=== PATIENT | male | born 1995 | race African-American/Black ===

== ENCOUNTER 2019-11-10 13:31 | Emergency (ER) | payer OTHER ==
[~2019-11-10] VITALS: Ht 172.7 cm; Wt 69.6 kg
[2019-11-10] MEDS ORDERED: KETO10TAB PO (15:20)
[2019-11-10] MEDS ORDERED: CYCL5TAB PO (15:20)
[2019-11-10 15:24] VITALS: BP 120/72
== END 2019-11-10 15:35 | disposition home or self-care (01) ==
LOC: M ED 13:31
DX: S39.012A Strain of muscle, fascia and tendon of lower back, initial encounter (principal); X50.0XXA Overexertion from strenuous movement or load, initial encounter; Y99.1 Military activity; Z87.442 Personal history of urinary calculi

== ENCOUNTER 2019-11-23 11:56 | Inpatient (IN) | payer OTHER ==
[~2019-11-23] VITALS: Ht 172.7 cm; Wt 63.6 kg
[~2019-11-23 11:56] MED LIST: CYCL5TAB PO; KETO10TAB PO
[2019-11-23 18:27] LABS: HEMATOCRIT 48.8 % (42.0-52.0); MEAN CORPUSCULAR HEMOGLOBIN 25.8 pg (27.0-33.0); MEAN CORPUSCULAR HGB CONC 30.7 g/dl (32.0-36.5); PLATELET COUNT, AUTOMATED 252 10^3/uL (150-450); RED BLOOD COUNT 5.81 10^6/uL (4.30-6.10); WHITE BLOOD COUNT 7.6 10^3/uL (4.0-10.0)
[2019-11-23 18:57] LABS: AMPHETAMINES LEVEL URINE NEGATIVE (NEGATIVE); BARBITURATES URINE NEGATIVE (NEGATIVE); BENZODIAZEPINES URINE NEGATIVE (NEGATIVE); CANNABINOIDS URINE NEGATIVE (NEGATIVE); COCAINE METABOLITE URINE NEGATIVE (NEGATIVE); METHADONE URINE NEGATIVE (NEGATIVE); OPIATES URINE NEGATIVE (NEGATIVE); PHENCYCLIDINE URINE NEGATIVE (NEGATIVE)
[2019-11-23 19:06] LABS: ACETAMINOPHEN LEVEL < 2.0 UG/ML (10.0-30.0); ALBUMIN 4.4 GM/DL (3.2-5.2); ALT/SGPT 16 U/L (12-78); BILIRUBIN,DIRECT 0.2 MG/DL (0.0-0.2); BILIRUBIN,TOTAL 0.9 MG/DL (0.2-1.0); BLOOD UREA NITROGEN 10 MG/DL (7-18); CALCIUM LEVEL 9.7 MG/DL (8.5-10.1); CARBON DIOXIDE LEVEL 29 MEQ/L (21-32); CHLORIDE LEVEL 104 MEQ/L (98-107); CREATININE FOR GFR 0.98 MG/DL (0.70-1.30); ETHYL ALCOHOL (ETHANOL) 0.006 % (0.000-0.010); GLOMERULAR FILTRATION RATE > 60.0 (>60); GLUCOSE, FASTING 84 MG/DL (70-100); POTASSIUM SERUM 3.7 MEQ/L (3.5-5.1); SALICYLATE LEVEL < 1.7 MG/DL (5.0-30.0); SODIUM LEVEL 140 MEQ/L (136-145); THYROID STIMULATING HORMONE 0.715 uIU/ML (0.358-3.740); TOTAL PROTEIN 8.2 GM/DL (6.4-8.2)
[2019-11-23] MEDS ORDERED: ACETAMINOPHEN TAB 650MG DOSE (2X325MG) PO ONE (19:15)
[2019-11-23] MEDS ORDERED: MAALOX 30 ML SUSP *UDC PO PRN (20:15)
[2019-11-23] MEDS ORDERED: ACETAMINOPHEN TAB 650MG DOSE (2X325MG) PO PRN (20:15)
[2019-11-23] MEDS ORDERED: MOM 30ML SUSPENSION UDC PO PRN (20:15)
[2019-11-23] MEDS ORDERED: traZODone 50 MG TAB PO PRN (20:15)
[2019-11-24 06:00] VITALS: BP_SYST 115; BP_SYST 139; BP_DIAS 55; BP_DIAS 65
--- NOTE | 2019-11-24 07:26 | MHHPEPDOC ---
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 He reports that he has lost interest and had sleeping problems, becoming increasingly insomniac. He reports that he does feel better when he is around his family and they notices no symptoms, especially when his stress ulcer reduced. He noticed this contrasts greatly when he came home from spending time with his family during the winter break and began to feel suicidal at times. Subsequently, he had thoughts of ramming his car into a wall, however, he was persuaded to come into the ER and seek care. When the patient was met with, he described that he had not had any significant psychiatric history in many years and had been doing well other than his transf er to this base station and reports that he has found the to be more institutional and harder for him to cope with, making it difficult for him to feel accepted. Review Of Systems Depression: As above. Anxiety: The patient denies any excessive worry associated with physical symptoms. They deny any experience of discreet panic in the past. Onelia: The patient denies any episodes of euphoria/dysphoria associated with decreased need for sleep, hedonism, talkatively or impulsivity lasting longer than 5 days. Psychotic: The patient denies any experiences of auditory or visual hallucinat ions. They deny any episodes of paranoia or delusional thinking in the past Trauma: The patient denies any traumatic events associated with nightmares or intrusive thoughts. Borderline: The patient screens negative for borderline personality at this junction. Past Psychiatric History The patient has a history of a previous admission for a suicide attempt when he was younger, but no other interactions, no current psychiatric medications, or has no followup. Allergies Please see below. Family Psychiatric History The patient denies/is unaware any history of mental health history including add ictions and suicide. Social History The patient is a never soldier who currently has no children. He lives in the [facility], resides only with himself since on income, got a bachelor's degree in [employer] administration, grew up in the [place], but moved to go to college in [facility] when his family had moved. No illegal trouble and identifies as heterosexual. Reports that he talks to his parents regularly as his mom lives in the [place]. Reports his father lives in the [facility]. Substance Abuse History The patient denies any excessive alcohol use, tobacco or illicit drug use, denies history of substance use treatment. Medical History Patient has no significant past medical history. Mental Status Examination General: Well dressed with good hygiene Speech: Spontaneous and fluid Thought processes: Linear and logical MSK: Smooth and coordinated gait, no signs of tremors or involuntary orofacial movements Thought content: Future orientated Abstract reasoning, and computation: Intact Description of associations: Intact Description of abnormal or psychotic thoughts: Denies any suicidal or homicidal ideation. Denies any auditory or visual hallucinations. Does not appear to be responding to internal stimuli. Does not appear to be endorsing any bizarre or paranoid ideation. Judgment: fair Insight: fair Orientation: Alert and orientated 3 Cognition: Grossly normal Recent and remote memory: Intact Attention span and concentration: Intact Fund of knowledge: Adequate Mood: "okay" Affect: Mildly dysthymic with a constricted range Diagnoses Adjustment disorder with disruption of mood and conduct. Assessment and Plan Adjustment disorder: Start Wellbutrin 150 mg extended release daily. Discussed the risks, benefits and potential side effects with patient. Will convert to a voluntary 1.93 as the patient has no suicidal ideation at this time. Disposition The patient will be continued on a further voluntary admission for treatment of his depression which appears to have made good improvement with the environment. Problem List 1. Risk for suicide. 2. Ineffective coping. 3. Depression. Initial Treatment Plan 1. Patient was admitted on a 9.39 legal status. 2. Complete history was obtained. 3. With patients permission, family will be contacted and database will be expanded. 4. Patients medication regimen will be reviewed and changed accordingly. 5. Patient will be provided with protected environment. 6. Patient will be treated with individual, group, and milieu therapies. 7. Patient will receive supportive psych-education. 8. Discharge planning will commence immediately. 9. Outpatient follow-up treatment will be strongly recommended. 10. The initial treatment plan will focus initially on: Estimated Length Of Stay 3 days. Time Spent 70 minutes. Friday Vital Signs Vital Signs Date Time Temp Pulse Resp B/P (MAP) Pulse Ox O2 Delivery O2 Flow Rate FiO2 11/24/19 06:00 98.6 80 16 139/65 (89) 11/23/19 11:56 100 Laboratory Data 24H Labs Laboratory Tests 2 11/23/19 18:11: Nucleated Red Blood Cells % (auto) 0.0, Anion Gap 7L, Glomerular Filtration Rate > 60.0, Calcium Level 9.7, Total Bilirubin 0.9, Direct Bilirubin 0.2, Aspartate Amino Transf (AST/SGOT) 10, Alanine Aminotransferase (ALT/SGPT) 16, Alkaline Phosphatase 61, Total Protein 8.2, Albumin 4.4, Albumin/Globulin Ratio 1.16, Thyroid Stimulating Hormone (TSH) 0.715, Salicylates Level < 1.7L, Urine Opiates Screen NEGATIVE, Urine Methadone Screen NEGATIVE, Acetaminophen Level < 2.0L, Urine Barbiturates Screen NEGATIVE, Urine Phencyclidine Screen NEGATIVE, Urine Amphetamines Screen NEGATIVE, Urine Benzodiazepines Screen NEGATIVE, Urine Cocaine Metabolite Screen NEGATIVE, Urine Cannabinoids Screen NEGATIVE, Ethyl Alcohol Level 0.006 CBC/BMP Laboratory Tests 11/23/19 18:11 Medications No Active Prescriptions or Reported Meds Allergies Coded Allergies: No Known Allergies (Unverified , 11/10/19) SALLY KILGORE DO Nov 24, 2019 07:26
[2019-11-24] MEDS ORDERED: buPROPion **XL** TABLET 150MG (WELLBUTRIN XL) PO ONE (08:45)
[2019-11-24] MEDS ORDERED: NICOTINE 7 MG/24 HR TRANSDERMAL TD SCH (09:00)
[2019-11-24 15:53] VITALS: BP 121/70
--- NOTE | 2019-11-24 22:08 | HPEPDOC ---
General Date of Admission Nov 23, 2019 at 20:01 Date of Service: Nov 24, 2019 Chief Complaint The patient is a 24-year-old male admitted with a reason for visit of Unspecified Depressive D/O. Source: Patient Exam Limitations: No limitations Timing/Duration: Unsure Severity: Mild Associated Symptoms: Loss of appetite History of Present Illness 24 year old male admitted to [facility] for depression. Reports loss of appetite and weight loss of about 15 pounds. Also complains of poor sleep. Attributes to being under a lot of stress. Also reports intermittent back pain from lifting. Home Medications Scheduled Bupropion Hcl (Bupropion Xl) 150 Mg Tab.er.24h, 150 MG PO QAM for mood Allergies Coded Allergies: No Known Allergies (Unverified , 11/10/19) Past Medical History Medical History No other medical problems aside from occasional back pain. Surgical History No surgeries Family History Significant Family History: Hypertension Social History * Smoker: Denies Alcohol: occationally Drugs: denies Psychosocial History: Depression Has only been in the [employer] for 9 months. A-FIB/CHADSVASC A-FIB History Current/History of A-Fib/PAF?: No Current PO Anticoag Therapy: No Age/Risk Factor Scoring CHADSVASC: CHADSVASC Response (Comments) Value Age Risk Factor Age < 65 years old 0 Gender Risk Factor Male 0 Hx of CHF No 0 Hx of HTN No 0 Hx of Stroke/TIA/or VTE No 0 Hx of Diabetes No 0 Hx of Vascular Disease No 0 Total 0 Review of Systems Other systems 10 system review is otherwise negative except as stated in the HPI. Physical Examination General Exam: Positive: Alert, Cooperative Eye Exam: Positive: PERRLA, Conjunctiva & lids normal ENT Exam: Positive: Atraumatic, Mucous membr. moist/pink Neck Exam: Positive: Supple; Negative: JVD, thyromegaly, +2 carotid pulse wo bruit, Lymphadenopathy, Other Chest Exam: Positive: Clear to auscultation, Normal air movement Heart Exam: Positive: Rate Normal, Regular Rhythm, Normal S1, Normal S2; Negative: Murmurs, Rubs Abdomen Exam: Positive: Normal bowel sounds, Soft; Negative: Tenderness, Hepatospenomegaly Extremity Exam: Negative: Clubbing, Cyanosis, Edema, Normal pulses, Tenderness, Swelling, Other Skin Exam: Positive: Nl turgor and temperature Neuro Exam: Positive: Normal Gait, Normal Speech, Cranial Nerves 3-12 NL, Reflexes 2+ Psych Exam: Positive: Oriented x 3 Other physical findings Calluses to hands; depressed affect Vital Signs Vital Signs Date Time Temp Pulse Resp B/P (MAP) Pulse Ox O2 Delivery O2 Flow Rate FiO2 11/24/19 15:53 98.3 60 18 121/70 (87) 11/23/19 11:56 100 Assessment/Plan 1. Back pain Non acute, occasional. No need for intervention. 2. Depression Management per [facility]. Mr. Doherty is otherwise medically stable with no acute needs. We will sign off; please re-contact us if needed. Plan / VTE VTE Prophylaxis Ordered?: No VTE Exclusion Mechanical Proph: Low Risk for VTE Plan Diet: Continue Current Activity: Continue Current Anticipated Discharge: Home JAYE ROGERS MD Nov 24, 2019 22:08
[2019-11-25 06:29] VITALS: BP 117/63
[2019-11-25] MEDS: buPROPion **XL** TABLET 150MG (WELLBUTRIN XL) PO SCH (08:44)
--- NOTE | 2019-11-25 10:52 | MHIPNPDOC ---
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 He reports that he has lost interest and had sleeping problems, becoming increasingly insomniac. He reports that he does feel better when he is around his family and they notices no symptoms, especially when his stress ulcer reduced. He noticed this contrasts greatly when he came home from spending time with his family during the winter break and began to feel suicidal at times. Subsequently, he had thoughts of ramming his car into a wall, however, he was persuaded to come into the ER and seek care. When the patient was met with, he described that he had not had any significant psychiatric history in many years and had been doing well other than his transfer to this base station and reports that he has found the to be more institutional and harder for him to cope with, making it difficult for him to feel accepted. Interval History Psychiatric symptoms today: Affective: The patient reports improved mood, less loss of interest and improved concentration today. Psychotic: The patient denies any psychotic symptoms or paranoia. Anxiety:The patient reports feeling better, less worried and more able to socialize. Misc: The patient has become less isolative, more engaged. Group Attendance: The patient has been attending groups intermittently. Medication Side effects: See ROS below Behavioral problems/significant events overnight: None noted. Staff Report: The patient is friendly, amenable and otherwise has been engaged. Review Of Systems Cardiovascular: Denies Chest pain or palpitations GI: Denies Nausea, vomiting, or bowel changes Respiratory: Denies shortness of breath or cough Neuro: Denies dizziness, tremors Derm: Denies any rashes or pruritus : Denies any dysuria or urinary problems MSK: Denies any muscle tightness or stiffness Psychotherapy None on this visit. Vital Signs Reviewed. Mental Status Examination General: Well dressed with good hygiene Speech: Spontaneous and fluid Thought processes: Linear and logical MSK: Smooth and coordinated gait, no signs of tremors or involuntary orofacial movements Thought content: Future orientated Abstract reasoning, and computation: Intact Description of associations: Intact Description of abnormal or psychotic thoughts: Denies any suicidal or homicidal ideation. Denies any auditory or visual hallucinations. Does not appear to be responding to internal stimuli. Does not appear to be endorsing any bizarre or paranoid ideation. Judgment: fair Insight: fair Orientation: Alert and orientated 3 Cognition: Grossly normal Recent and remote memory: Intact Attention span and concentration: Intact Fund of knowledge: Adequate Mood: "okay" Affect: Euthymic with a full range Diagnoses Adjustment disorder with disruption of mood and conduct. Assessment and Plan Adjustment disorder: Continue Wellbutrin 150 mg daily. We will discharge tomorrow. Disposition Discharge tomorrow. Time Spent 15 minutes. Vital Signs Vital Signs Date Time Temp Pulse Resp B/P (MAP) Pulse Ox O2 Delivery O2 Flow Rate FiO2 11/25/19 06:29 97.3 70 12 117/63 (81) Room Air 11/23/19 11:56 100 Current Medications Current Medications Medications (Trade) Dose Ordered Sig/Naida Route PRN Reason Start Time Stop Time Status Last Admin Dose Admin Acetaminophen (Tylenol Tab) 650 mg Q6HP PRN PO HEADACHE or DISCOMFORT 11/23/19 20:15 Al Hydrox/Mg Hydrox/Simethicone (Mylanta) 30 ml Q4HP PRN PO HEARTBURN/INDIGESTION 11/23/19 20:15 Bupropion HCl (Wellbutrin Xl) 150 mg QAM PO 11/25/19 09:00 11/25/19 08:44 Home Med (Med Rec Complete!) ASDIRECTED XX 11/23/19 20:15 11/23/19 20:09 DC Magnesium Hydroxide (Milk Of Magnesia) 30 ml DAILYPRN PRN PO CONSTIPATION 11/23/19 20:15 Nicotine (Nicoderm Cq 7 Mg) 1 patch DAILY TD 11/24/19 09:00 11/24/19 07:42 DC Trazodone HCl (Desyrel) 50 mg QHSP PRN PO INSOMNIA 11/23/19 20:15 Allergies Coded Allergies: No Known Allergies (Unverified , 11/10/19) SALLY KILGORE DO Nov 25, 2019 10:52
[2019-11-25 16:22] VITALS: BP 110/70
[2019-11-26 07:04] VITALS: BP 126/59
[2019-11-26] MEDS: buPROPion **XL** TABLET 150MG (WELLBUTRIN XL) PO SCH (08:08)
[2019-11-26] MEDS ORDERED: BUPR150T3 PO (09:38)
--- NOTE | 2019-11-26 11:05 | MHDSPDOC ---
[facility] Discharge Summary Discharge Summary DATE OF ADMISSION: Nov 23, 2019 at 20:01 DATE OF DISCHARGE: 11/26/19 Discharge Shena Doherty MRN: N/A Date of : N/A Date of Service: 11/26/2019 Diagnoses Adjustment disorder with disruption of mood and conduct. 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 He reports that he has lost interest and had sleeping problems, becoming increasingly insomniac. He reports that he does feel better when he is around his family and they notices no symptoms, especially when his stress ulcer reduced. He noticed this contrasts greatly when he came home from spending time with his family during the winter break and began to feel suicidal at times. Subsequently, he had thoughts of ramming his car into a wall, however, he was persuaded to come into the ER and seek care. When the patient was met with, he described that he had not had any significant psychiatric history in many years and had been doing well other than his transfer to this base station and reports that he has found the to be more institutional and harder for him to cope with, making it difficult for him to feel accepted. Consultants Involved Hospitalist/PCP screening Treatment and Progress On The Unit Patient was admitted to the inpatient unit where he subsequently denied any suicidality. He was started on Wellbutrin 150 mg daily with positive effects. His affect improved and became euthymic. Patient attended some groups, was friendly, amenable with no behavioral problems. He was converted voluntarily shortly after coming to our unit and subsequently then requested for discharge where he was discharged back to [facility]. 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 On the day of discharge, he denies any suicidal or homicidal ideation and for the entirety of his stay with us. He has a normal mental status, is friendly, amenable, cooperative with discharge and thus does not meet involuntary criteria in my opinion. He declines further voluntary admission and is discharged in good debbie. Mental Status Examination General: Well dressed with good hygiene Speech: Spontaneous and fluid Thought processes: Linear and logical MSK: Smooth and coordinated gait, no signs of tremors or involuntary orofacial movements Thought content: Future orientated Abstract reasoning, and computation: Intact Description of associations: Intact Description of abnormal or psychotic thoughts: Denies any suicidal or homicidal ideation. Denies any auditory or visual hallucinations. Does not appear to be responding to internal stimuli. Does not appear to be endorsing any bizarre or paranoid ideation. Judgment: fair Insight: fair Orientation: Alert and orientated 3 Cognition: Grossly normal Recent and remote memory: Intact Attention span and concentration: Intact Fund of knowledge: Adequate Mood: "okay" Affect: Euthymic with a full range Follow Up The social work team worked during the predischarge meeting in order to evaluate for further issues of lethality address them fully before discharge. They worked on safety planning with the patient's family members in order to ensure that the patient will have a safe and effective discharge. Time Spent The amount of time spent in the coordination of care for this patient was approximately 45 minutes. Friday Vital Signs/I&Os Vital Signs Date Time Temp Pulse Resp B/P (MAP) Pulse Ox O2 Delivery O2 Flow Rate FiO2 11/26/19 07:04 98.6 88 16 126/59 (81) 11/25/19 06:29 Room Air 11/23/19 11:56 100 Medications Scheduled Bupropion Hcl (Bupropion Xl) 150 Mg Tab.er.24h, 150 MG PO QAM for mood for 7 Days, #7 Allergies Coded Allergies: No Known Allergies (Unverified , 11/10/19) SALLY KILGORE DO Nov 26, 2019 11:05
== END 2019-11-26 10:20 | disposition home or self-care (01) | DRG 882 ==
LOC: M ED 11:56 → M ED INP 20:01 → M PSY 21:20
PROVIDERS: ADMIT Psychiatry & Neurology Psychiatry; ATTEND Psychiatry & Neurology Addiction Medicine
DX: F43.25 Adjustment disorder with mixed disturbance of emotions and conduct (principal)